=== PATIENT | female | born 1990 ===

== ENCOUNTER 2018-09-17 19:30 | Emergency (ER) | payer MEDICAID ==
[2018-09-17] MEDS ORDERED: Sodium Chloride 0.9% 1,000 ML IV ONE (20:19)
[2018-09-17 20:35] LABS: HCG,QUALITATIVE URINE NEGATIVE (NEGATIVE)
[2018-09-17 20:38] LABS: SQUAMOUS EPITHIAL 2 /hpf (0-5); URINE BACTERIA RARE (<OCC); URINE BILIRUBIN NEGATIVE (NEGATIVE); URINE BLOOD 3+ (NEGATIVE); URINE CLARITY Clear (Clear); URINE COLOR Yellow (YELLOW); URINE GLUCOSE (UA) NORMAL (Normal); URINE LEUKOCYTE ESTERASE NEG Leu/uL (Negative); URINE PROTEIN NEGATIVE (NEGATIVE); URINE UROBILINOGEN NORMAL mg/dL (0.2-1.0)
[2018-09-17] MEDS ORDERED: Sodium Chloride 0.9% 1,000 ML ONE (20:46)
[2018-09-17 21:05] LABS: BASO % 0.4 % (0.0-2.0); EOS # 0.1 K/uL (0.0-0.7); HEMOGLOBIN 12.9 g/dL (11.0-16.0); LYMPH # 1.3 K/uL (1.0-4.3); LYMPH % 41.3 % (20.0-40.0); MEAN CELL VOLUME 88.5 fL (81.0-99.0); MEAN CORPUSCULAR HEMOGLOBIN 29.7 pg (27.0-31.0); MEAN CORPUSCULAR HGB CONC 33.6 g/dL (33.0-37.0); MEAN PLATELET VOLUME 10.1 fL (7.2-11.7); MONO # 0.2 K/uL (0.0-0.8); MONO % 6.5 % (0.0-10.0); NEUT # 1.6 K/uL (1.8-7.0); NEUT % 48.8 % (50.0-75.0); NRBC % 0.1 % (0.0-2.0); RBC 4.34 Mil/uL (3.80-5.20); RED CELL DISTRIBUTION WIDTH 14.1 % (11.5-14.5); WHITE BLOOD COUNT 3.2 K/uL (4.8-10.8)
[2018-09-17 21:15] LABS: ALB/GLOB RATIO 1.3 (1.0-2.1); ALBUMIN 4.3 g/dL (3.5-5.0); ALT/SGPT 27 U/L (9-52); AST/SGOT 24 U/L (14-36); BLOOD UREA NITROGEN 14 mg/dL (7-17); GFR NON-AFRICAN AMERICAN > 60
[2018-09-17 21:48] LABS: CK-MB < 0.22 ng/mL (0.0-3.38)
--- NOTE | 2018-09-17 22:03 | C.PDOC ---
History Of Present Illness 28 year old female presents to the ED c/o left arm and chest pain for the past 3 days, worse today. Patient reports pain worsens with movement. She also reports some nodules under the skin of her arms for the last several months that have become painful. Patient denies fever, chills, nausea, vomiting, SOB, palpitations, injuries/falls, sensory changes, extremity weakness. Time Seen by Provider: 09/17/18 20:02 Chief Complaint (Nursing): Chest Pain History Per: Patient History/Exam Limitations: no limitations Onset/Duration Of Symptoms: Days Current Symptoms Are (Timing): Still Present Severity: Mild Quality: "Pain" Exacerbating Factors: Movement Additional History Per: Patient Past Medical History Reviewed: Historical Data, Nursing Documentation, Vital Signs Vital Signs: Last Vital Signs Temp 97.8 F 09/17/18 19:46 Pulse 66 09/17/18 19:46 Resp 16 09/17/18 19:46 BP 112/73 09/17/18 19:46 Pulse Ox 99 09/17/18 19:46 - Medical History PMH: No Chronic Diseases Surgical History: No Surg Hx Family History: States: No Known Family Hx - Social History Hx Alcohol Use: No Hx Substance Use: No - Immunization History Hx Tetanus Toxoid Vaccination: No Hx Influenza Vaccination: No Hx Pneumococcal Vaccination: No Review Of Systems Constitutional: Negative for: Fever, Chills Cardiovascular: Positive for: Chest Pain. Negative for: Palpitations Respiratory: Negative for: Cough, Shortness of Breath Gastrointestinal: Negative for: Nausea, Vomiting, Abdominal Pain Musculoskeletal: Positive for: Arm Pain Skin: Positive for: Other (painful nodules on b/l arms). Negative for: Rash Neurological: Negative for: Weakness, Numbness, Headache, Dizziness Physical Exam - Physical Exam Appears: Well, Non-toxic, In Acute Distress, Other (anxious appearing) Skin: Normal Color, Warm, Dry, No Rash Head: Atraumatic, Normacephalic Eye(s): bilateral: Normal Inspection Oral Mucosa: Moist Neck: Supple Lymphatic: No Adenopathy (cervical ), No Inguinal Node Tenderness Chest: Symmetrical, Tenderness (left upper chest TTP), No Ecchymosis, No Subcutaneous Emphysema Cardiovascular: Rhythm Regular Respiratory: Normal Breath Sounds, No Rales, No Rhonchi, No Wheezing Gastrointestinal/Abdominal: Normal Exam, Bowel Sounds, Soft, No Tenderness Extremity: No Pedal Edema, No Calf Tenderness, Capillary Refill (< 2 sec all digits ) Extremity: Bilateral: Atraumatic, Normal Color And Temperature, Normal ROM, Other (multiple subcutaneous palpable nodules/? lymphnodes, (+)tender to palpation) Pulses: Left Radial: Normal, Right Radial: Normal Neurological/Psych: Oriented x3, Normal Sensation Gait: Steady ED Course And Treatment - Laboratory Results Result Diagrams: 09/17/18 20:59 09/17/18 20:59 Lab Results: D-Dimer, Quantitative 207 ng/mlDDU (0-243) 09/17/18 20:59 Troponin I < 0.0120 ng/mL (0.00-0.120) 09/17/18 20:59 Total Bilirubin 0.5 mg/dL (0.2-1.3) 09/17/18 20:59 AST 24 U/L (14-36) 09/17/18 20:59 ALT 27 U/L (9-52) 09/17/18 20:59 Alkaline Phosphatase 93 U/L (38-126) 09/17/18 20:59 Total Protein 7.7 g/dL (6.3-8.3) 09/17/18 20:59 Albumin 4.3 g/dL (3.5-5.0) 09/17/18 20:59 Globulin 3.4 gm/dL (2.2-3.9) 09/17/18 20:59 Albumin/Globulin Ratio 1.3 (1.0-2.1) 09/17/18 20:59 Urine Color Yellow (YELLOW) 09/17/18 20:28 Urine Clarity Clear (Clear) 09/17/18 20:28 Urine pH 5.0 (5.0-8.0) 09/17/18 20:28 Ur Specific [place] 1.020 (1.003-1.030) 09/17/18 20:28 Urine Protein Negative mg/dL (NEGATIVE) 09/17/18 20:28 Urine Glucose (UA) Normal mg/dL (Normal) 09/17/18 20:28 Urine Ketones Negative mg/dL (NEGATIVE) 09/17/18 20:28 Urine Blood 3+ (NEGATIVE) H 09/17/18 20:28 Urine Nitrate Negative (NEGATIVE) 09/17/18 20:28 Urine Bilirubin Negative (NEGATIVE) 04/27/19 20:28 Urine Urobilinogen Normal mg/dL (0.2-1.0) 09/17/18 20:28 Ur Leukocyte Esterase Neg Ramana/uL (Negative) 09/17/18 20:28 Urine WBC (Auto) 4 /hpf (0-5) 09/17/18 20:28 Urine RBC (Auto) 28 /hpf (0-3) H 09/17/18 20:28 Ur Squamous Epith Cells 2 /hpf (0-5) 09/17/18 20:28 Urine Bacteria Rare (<OCC) 09/17/18 20:28 Urine HCG, Qual Negative (NEGATIVE) 09/17/18 20:28 Urine HCG, Qual Negative (NEGATIVE) 09/17/18 20:28 ECG: Interpreted By Me, Viewed By Me (sinus rhythm 72 bpm, normal axis, no acute ST/T wave changes) ECG Rhythm: Sinus Rhythm ECG Interpretation: Normal O2 Sat by Pulse Oximetry: 99 (ON RA) Pulse Ox Interpretation: Normal - Radiology CXR: Interpreted by Me, Viewed By Me CXR Interpretation: Yes: No Acute Disease. No: Infiltrates Progress Note: EKG, CXR, UA, Upreg ordered and reviewed. Patient given IV NS bolus, IV toradol. Reevaluation Time: 22:10 Reassessment Condition: Improved (On reassessment, patient is resting comfortably and states she feels better, has no current pain. Blood work, CXR and EKG ordered and reviewed. Patient given RX for Ibuprofen, and she was instructed to follow up with general surgeon within 1 week for eval/biopsy of no dules. Patient understands she should return to ED if symptoms worsen.) Disposition Counseled Patient/Family Regarding: Studies Performed, Diagnosis, Need For Followup, Rx Given - Disposition Referrals: [facility] [Outside] Chanel John MD [Staff Provider] - Disposition: HOME/ ROUTINE Disposition Time: 22:10 Condition: STABLE Additional Instructions: FOLLOW UP IN THE MEDICAL CLINIC IN 1-2 DAYS AND WITH GENERAL SURGEON WITHIN 1 WEEK YOU NEED A BIOPSY OF THE NODULES ON YOUR ARMS USE PAIN MEDICATION NEEDED RETURN TO EMERGENCY ROOM IF SYMPTOMS BECOME WORSE SEGUIRSE EN LA CLNICA MDICA EN 1-2 MCGUIRE Y CON EL CIRUJANO GENERAL EN SEBASTIAN SEMANA NECESITAS SEBASTIAN BIOPSIA DE LOS NODULOS EN TUS BRAZOS UTILICE MEDICAMENTOS PARA EL DOLOR KJ SE NECESITE VUELVA A LA MELI DE EMERGENCIA SI LOS SNTOMAS SE HACEN PEOR Prescriptions: Ibuprofen [Motrin Tab] 600 mg PO Q6 PRN #30 tab PRN Reason: fever/pain Instructions: Chest Pain That Is Not Caused by the Heart (DC) Forms: [employer] (Spanish) Print Language: CHINESE - Clinical Impression Clinical Impression: Generalized subcutaneous nodules, Chest wall pain, Left arm pain - Scribe Statement The provider has reviewed the documentation as recorded by the Scribe Catarino Reynolds All medical record entries made by the Scribe were at my direction and personally dictated by me. I have reviewed the chart and agree that the record accurately reflects my personal performance of the history, physical exam, medical decision making, and the department course for this patient. I have also personally directed, reviewed, and agree with the discharge instructions and disposition.
[2018-09-17 22:28] VITALS: BP 160/66; PULSE 70; RESP 18; TEMP 98.2
[2018-09-18 04:16] VITALS: O2SAT 99
--- NOTE | 2018-09-18 17:33 | RAD ---
Date of service: 09/17/2018 PROCEDURE: CHEST RADIOGRAPH, 1 VIEW HISTORY: CHEST PAIN COMPARISON: None available. FINDINGS: LUNGS: Clear. PLEURA: No pneumothorax or pleural fluid seen. CARDIOVASCULAR: No aortic atherosclerotic calcification present. Normal. OSSEOUS STRUCTURES: No significant abnormalities. VISUALIZED UPPER ABDOMEN: Normal. OTHER FINDINGS: None. IMPRESSION: No active disease.
--- NOTE | 2018-09-20 13:05 | CARD ---
APPROVED REPORT Date of service: 09/17/2018 EKG Measurement Heart [id number] <Conclusion> Normal sinus rhythm Normal ECG
== END 2018-09-17 22:23 | disposition home or self-care (01) ==
LOC: C.ER 19:30
DX: R07.89 Other chest pain (principal); M79.602 Pain in left arm; R22.9 Localized swelling, mass and lump, unspecified
CPT/HCPCS: 71045; 80053; 81001; 82550; 82553; 84484; 84703; 85025; 85378; 96361; 96374; 99284; J1885; J7030